=== PATIENT | female | born 1980 | race Caucasian/White ===

== ENCOUNTER 2021-03-28 08:26 | Emergency (ER) | payer OTHER ==
[2021-03-28 11:02] LABS: HEMOGLOBIN 12.2 gm/dl (12.3-15.3); RED BLOOD COUNT 4.51 M/UL (4.00-5.10)
[2021-03-28 11:28] LABS: BUN/CREATININE RATIO 16 (0-10)
== END 2021-03-28 12:50 | disposition home or self-care (01) ==
LOC: ER1 08:26
PROVIDERS: Physician Assistant; Student in an Organized Health Care Education/Training Program
DX: R07.9 Chest pain, unspecified (principal)
CPT/HCPCS: 71045; 80053; 82550; 82553; 83690; 83874; 84484; 85025; 93005; 99285